=== PATIENT | female | born 1980 | race African-American/Black ===

== ENCOUNTER 2017-03-07 12:34 | Emergency (ER) | payer OTHER ==
[~2017-03-07] VITALS: Ht 167.6 cm; Wt 77.0 kg
[2017-03-07] MEDS ORDERED: BIOT1POW3 MC (12:48)
[2017-03-07] MEDS ORDERED: GLUC100017 PO (12:48)
[2017-03-07 16:15] VITALS: BP 118/76
[2017-03-07] MEDS ORDERED: DIPHENHYDRAMINE 25MG CAPSULE PO ONE (16:15)
[2017-03-07] MEDS ORDERED: PREDNISONE 20MG TABLET PO ONE (16:15)
== END 2017-03-07 16:45 | disposition home or self-care (01) ==
LOC: ER 14:11
DX: L50.9 Urticaria, unspecified (principal)
CPT/HCPCS: 99283; J7512; Q0163